=== PATIENT | female | born 1975 | race Caucasian/White ===

== ENCOUNTER 2018-08-20 13:43 | Emergency (ER) | payer OTHER ==
[2018-08-20 16:00] VITALS: BP 96/65
--- NOTE | 2018-08-20 16:04 | UC ---
Ear Complaint HPI - HPI Summary HPI Summary: 43 y/o female presents to the urgent care c/o RT ear pain since yesterday. Pt reports she has hx or recurrent ear infections specially when she swims. Pt states pain is 8/10 today. She took Advil 400mg PO this morning to alleviate symptoms. PT denies URI, fever, dizziness, tinnitus, CHRISTY, abdominal pain, cough, SOB, chest pain, N/V/D. - History of Current Complaint Chief Complaint: UCEar Stated Complaint: EAR ACHE Time Seen by Provider: 08/20/18 16:03 Hx Obtained From: Patient Hx Last Menstrual Period: today ?: No Onset/Duration: Gradual Onset, Lasting Days - 1 day, Still Present, Worse Since - today Severity Initially: Moderate Severity Currently: Moderate Pain Intensity: 8 Pain Scale Used: 0-10 Numeric Aggravating Factors: Other - touch Alleviating Factors: OTC Meds Associated Signs/Symptoms: Negative: Discharge, Hearing Loss, Trauma to Ear, Swelling @ - Allergies/Home Medications Allergies/Adverse Reactions: Allergies Allergy/AdvReac Type Severity Reaction Status Date / Time gentamicin Allergy Severe respiratory Verified 08/20/18 16:02 distress PMH/Surg Hx/FS Hx/Imm Hx Previously Healthy: Yes Endocrine History: Dyslipidemia - diet control Other Respiratory History: Recurrent ear infections - Surgical History Surgical History: None - Family History Known Family History: Positive: None - Pt denies FMHX Negative: Hypertension - Social History Occupation: Employed Full-time Lives: With Family Alcohol Use: None Substance Use Type: None Smoking Status (MU): Never Smoked Tobacco Review of Systems All Other Systems Reviewed And Are Negative: Yes Constitutional: Positive: Negative Skin: Positive: Negative Eyes: Positive: Negative ENT: Positive: Negative, Ear Ache - RT ear pain Respiratory: Positive: Negative Cardiovascular: Positive: Negative Gastrointestinal: Positive: Negative Genitourinary: Positive: Negative Motor: Positive: Negative Neurovascular: Positive: Negative Musculoskeletal: Positive: Negative Neurological: Positive: Negative Psychological: Positive: Negative Is Patient Immunocompromised?: No Physical Exam - Summary Physical Exam Summary: Vital signs: reviewed General: well developed, well nourished obese female sitting in the examining table w/o any apparent distress Skin: [employer], warm and dry, no evidence of atopic dermatitis, psoriasis, seborrhea. HEENT: -Head: atraumatic, non tender; no scalp dermatitis. -Eyes: sclera and conjunctiva clear, PERRLA, EOMI -Ears: no pre- or postauricular lymphadenopathy or erythema; RT external ear canal with erythema and yellowish purulent discharge, pinna tenderness on palpation, Rt TM injected w/ erythema, LF external ear canal clear and LF TM WNL. TMs normal w/out bulging or retraction. Good light reflex. No fluid level, vesicles, or bullae. No perforation. -Nose/Face: erythematous and edematous nasal mucosa with clear rhinorrhea, no frontal or maxillary sinus tender to palpation. -Mouth/Throat: Mucous membrane moist, posterior pharynx clear, no erythema or exudates. Neck: supple, FROM, nontender, no lymphadenopathy, no meningismus. Chest: Clear to auscultation, normal breath sounds Abd: soft, Bowel sounds active, Nontender. Back: no spinal or CVAT Neuro: A&O x4, GCS 15, no focal neuro deficits, normal behavior for age. Triage Information Reviewed: Yes Vital Signs: Initial Vital Signs Temp 97.6 F 08/20/18 15:54 Pulse 100 08/20/18 15:54 Resp 16 08/20/18 15:54 BP 96/65 08/20/18 15:54 Pulse Ox 99 08/20/18 15:54 Ear Complaint Course/Dx - Course Course Of Treatment: 43 y/o female presents to the urgent care c/o RT ear pain since yesterday. Pt reports she has hx or recurrent ear infections specially when she swims. Pt states pain is 8/10 today. She took Advil 400mg PO this morning to alleviate symptoms. PT denies URI, fever, dizziness, tinnitus, CHRISTY, abdominal pain, cough, SOB, chest pain, N/V/D. Hx obtained. Pt with a RT otitis externa and RT otitis media on examination. Pt Rx Ciprodex otic drops and amoxicillin PO . Advised to continue taking Ibuprofen PO OTC for pain. If symptoms do not improve or worsen to return to the urgent care or f/u with PCP for further management. Pt understood and agreed with D/C instructions. - Differential Dx/Diagnosis Differential Diagnosis/HQI/PQRI: Cerumen Impaction, Otitis Externa, Otitis Media , Perforated TM, URI Provider Diagnosis: Right otitis media, Right otitis externa, Otalgia of right ear Discharge - Sign-Out/Discharge Documenting (check all that apply): Patient Departure - d/c home All imaging exams completed and their final reports reviewed: No Studies - Discharge Plan Condition: Stable Disposition: HOME Prescriptions: Amoxicillin PO (*) [Amoxicillin 875 MG (*)] 875 mg PO BID #14 tab Ciproflox/Dexameth OTIC.SUSP* [Ciprodex OTIC.SUSP*] 4 drop .SEE ORDER BID #1 btl Fluconazole 150 MG TAB* [Diflucan 150 MG TAB*] 150 mg PO ONCE #1 tablet Patient Education Materials: Ear Infection (ED) Referrals: [facility] [Outside] - 3 Days Additional Instructions: 1-Please apply otic antibiotic on your Rt ear as directed for otitis Externa. Also take Amoxicillin PO aas directed for your Otitis Media 2-continue taking ibuprofen PO after meals for pain. 3-If symptoms do not improve or worsen please f/u with your PCP in 3 days or return to the urgent care for further evaluation and treatment. - Billing Disposition and Condition Condition: STABLE Disposition: Home
== END 2018-08-20 16:30 | disposition home or self-care (01) ==
LOC: UCEAST 13:43
DX: H66.91 Otitis media, unspecified, right ear (principal); H60.91 Unspecified otitis externa, right ear; Z88.1 Allergy status to other antibiotic agents
CPT/HCPCS: 99212; G0463